=== PATIENT | male | born 2000 ===

== ENCOUNTER 2025-01-24 20:01 | Emergency (ER) | payer SELFPAY ==
[2025-01-24 20:01] VITALS: BP 130/72; PULSE 62; RESP 12; TEMP 36.4; O2SAT 99; BMI 26.9
--- NOTE | 2025-01-24 21:38 | ED.RN ---
2137: PT. CALLED FOR X-RAY WITH NO RESPONSE IN DEPARTMENT. PT. WAS NOT IN THE BATHROOM. REGISTRATION NOTIFIED PT. LEFT WITHOUT BEING SEEN BY A PROVIDER.
== END 2025-01-24 21:37 | disposition left against medical advice (07) ==
LOC: ED 21:43
DX: Z53.21 Procedure and treatment not carried out due to patient leaving prior to being seen by health care provider (principal)